=== PATIENT | male | born 1995 | race Caucasian/White ===

== ENCOUNTER 2021-07-13 08:45 | Outpatient (CLI) | payer BC | END 2021-07-13 08:46 | disposition home or self-care (01) | LOC: BICMAMMO 08:45 | PROVIDERS: ATTEND Family Medicine | DX: N62 Hypertrophy of breast (principal); R79.89 Other specified abnormal findings of blood chemistry | CPT/HCPCS: 77066; G0279 ==

== ENCOUNTER 2021-12-01 19:00 | Outpatient (CLI) | payer BC | END 2021-12-01 19:01 | disposition home or self-care (01) | LOC: SLEEPLAB 19:00 | PROVIDERS: ATTEND Internal Medicine | DX: G47.33 Obstructive sleep apnea (adult) (pediatric) (principal); R09.89 Other specified symptoms and signs involving the circulatory and respiratory systems; E66.9 Obesity, unspecified; Z68.33 Body mass index [BMI] 33.0-33.9, adult; G47.10 Hypersomnia, unspecified; R06.83 Snoring | CPT/HCPCS: 95810 ==